=== PATIENT | male | born 1995 | race Caucasian/White ===

== ENCOUNTER 2017-10-10 16:28 | Day surgery (SDC) | END 2017-10-10 21:26 | disposition home or self-care (01) ==

== ENCOUNTER 2018-12-06 19:55 | Emergency (ER) | payer OTHER ==
[~2018-12-06] VITALS: Ht 172.7 cm; Wt 118.5 kg
[2018-12-06 19:57] VITALS: Ht 172.7 cm; Wt 118.5 kg
[2018-12-06] MEDS ORDERED: morphine 4 MG/ML VIAL IV STA (20:00)
[2018-12-06] MEDS ORDERED: ONDANSETRON 4 MG INJ IV STA (20:00)
[2018-12-06] MEDS ORDERED: FENTAnyl 50 MCG/ML VIAL IV ONE (20:30)
[2018-12-06 23:01] VITALS: BP 128/72; PULSE 94; RESP 20
== END 2018-12-06 23:02 | disposition home or self-care (01) ==
LOC: E/R 19:55
DX: S43.005A Unspecified dislocation of left shoulder joint, initial encounter (principal); S01.81XA Laceration without foreign body of other part of head, initial encounter; F17.210 Nicotine dependence, cigarettes, uncomplicated; W10.9XXA Fall (on) (from) unspecified stairs and steps, initial encounter; Y92.9 Unspecified place or not applicable
CPT/HCPCS: 12011; 23650; 70450; 71045; 73020; 96374; 96375; J2270; J2405; J3010; Z7502; Z7610